=== PATIENT | female | born 1990 | race Caucasian/White ===

== ENCOUNTER 2022-01-10 09:01 | Outpatient (CLI) | payer OTHER, SELFPAY ==
--- NOTE | 2022-01-10 09:15 | CRLHL7_ITS ---
For Patients: As a result of the Century Cures Act, medical imaging exams and procedure reports are released immediately into your electronic medical record. You may view this report before your referring provider. If you have questions, please contact your health care provider. INDICATION: Evaluate anatomy. COMPARISON: 11/15/2021 TECHNIQUE: Real time messina scale imaging of the fetus was performed as well as color Doppler analysis of the umbilical vessels. FINDINGS: Sonographic imaging demonstrates a single living intrauterine gestation. Fetus demonstrates a regular cardiac rate of 161 beats per minute. Fetus has a breech position. The placenta lies anteriorly without evidence of placenta previa. The edge of the placenta is located 3 cm from the internal cervical os. Amniotic fluid volume appears normal. Single deepest vertical pocket: 5.7 cm. The cervix is closed and measures 4.8 cm in length. The composite ultrasound gestational age is calculated at 20 weeks 3 days with an estimated sonographic due date of 05/27/2022. The estimated weight is 354 grams which lies at the greater than 97th %. The following biometric measurements were obtained: Biparietal diameter: 4.8 cm/20 weeks 3 days 95th% Head circumference: 17.8 cm/20 weeks 2 days 91st% Abdominal circumference: 16.1 cm/21 weeks 1 day 96th% Femur length: 3.1 cm/19 weeks 4 days 65th% The HC/AC ratio measures: 1.10 range (1.07-1.25) On anatomic survey, there is a normal appearance of the cerebral ventricles, cavum septi pellucidi, cisterna magna and cerebellum. The nose, lips, and facial profile appear normal. The cervical, thoracic and lumbar spine are well visualized and appear normal. There is a normal four-chamber heart view and the left and right ventricular outflow tracts appear normal. The diaphragm and stomach appear normal. The kidneys and bladder also appear normal. There is a normal three-vessel cord and cord insertion site. The four extremities appear normal. IMPRESSION: Normal anatomic survey. Sonographic gestational age 20 weeks 3 days and sonographic due date 05/27/2022. Sonographic age 10 days ahead of the clinical age. Abdominal circumference 96th percentile. Estimated weight greater than 97th percentile. Dictated by Ferny London MD @ 01/10/2022 11:25:30 AM (Electronically Signed)
== END 2022-01-10 09:02 | disposition home or self-care (01) ==
LOC: US 09:01
PROVIDERS: Visit Provider Obstetrics & Gynecology
DX: Z34.91 Encounter for supervision of normal pregnancy, unspecified, first trimester (principal); Z3A.20 20 weeks gestation of pregnancy
CPT/HCPCS: 76805

== ENCOUNTER 2022-02-07 10:12 | Outpatient (CLI) | payer OTHER, SELFPAY ==
[2022-02-07 12:35] LABS: Alanine Aminotransferase* 13 U/L (4-35); Aspartate Amino Transferase* 17 U/L (12-35)
== END 2022-02-07 10:13 | disposition home or self-care (01) ==
PROVIDERS: Visit Provider Obstetrics & Gynecology
DX: O36.0910 Maternal care for other rhesus isoimmunization, first trimester, not applicable or unspecified (principal); Z87.59 Personal history of other complications of pregnancy, childbirth and the puerperium
CPT/HCPCS: 84450; 84460; 86850; 86870; 86880; 86886; 86900; 86901; 86976

== ENCOUNTER 2022-03-16 10:21 | Outpatient (CLI) | payer OTHER, SELFPAY ==
[2022-03-18 17:17] LABS: Rapid Plasma Reagin (RPR) Non Reactive (Non Reactive)
== END 2022-03-16 10:22 | disposition home or self-care (01) ==
PROVIDERS: Visit Provider Obstetrics & Gynecology
DX: O36.0930 Maternal care for other rhesus isoimmunization, third trimester, not applicable or unspecified (principal); Z3A.28 28 weeks gestation of pregnancy
CPT/HCPCS: 86592; 86870; 86880; 86886; 86900; 86901; 86976

== ENCOUNTER 2022-03-30 10:08 | Outpatient (CLI) | payer OTHER, SELFPAY ==
[2022-03-30] VITALS (30 sets, daily range): BP systolic 118–130; BP diastolic 76–84; PULSE 70–101; RESP 16–18; TEMP 36.7–36.9; O2SAT 96–99; BMI 28.9
--- NOTE | 2022-03-30 10:46 | ED.NURSE ---
OB nurse, Dianne, here in dept to place monitor for baby
--- NOTE | 2022-03-30 11:05 | ED_ITS ---
HPI - Head Injury General Chief complaint: Head Injury/Pain Stated complaint: 30 week fell hit head Time Seen by Provider: 03/30/22 10:21 History of Present Illness HPI Narrative: This 31-year-old female comes in with an injury to her head that occurred just prior to arrival. She is 30 weeks and was ambulating up the steps on her porch. She tripped on the step and fell forward hitting her face on floor and her forehead on the threshold of the door. She has a laceration just above the scalp line on her upper forehead. She did not have loss of consciousness. She does not report any other injury. She does not have any abdominal pain and is not certain whether she hit her abdomen. She does not report severe headache but does have some tenderness at the site of the injury. She has not had any vomiting. She does not show any neurologic deficit or altered level of consciousness. Related Data Home Medications Medication Instructions Recorded Confirmed docosahexaenoic acid 200 mg 200 mg PO 12/15/21 03/28/22 capsule ( DHA) escitalopram oxalate 10 mg tablet 10 mg PO DAILY 12/15/21 03/28/22 Allergies Allergy/AdvReac Type Severity Reaction Status Date / Time banana Allergy Mild Rash Verified 03/28/22 10:47 lentils Allergy Verified 03/28/22 10:47 peas Allergy Verified 03/28/22 10:47 pineapple Allergy Verified 03/28/22 10:47 chickpea Allergy Intermediate Hives Uncoded 03/28/22 10:47 seasonal Allergy Mild Uncoded 03/28/22 10:47 Review of Systems Status of ROS: Reports: 10 or more systems reviewed and unremarkable except as noted in History and below Narrative: Constitutional: No fevers, no weight gain or loss. Eyes: No discharge. No vision changes. HENT: No congestion, no sore throat, no ear pain. Scalp laceration. Cardiovascular: No chest pain, no palpitations. Respiratory: No shortness of breath, no wheezes, no cough. Gastrointestinal: No abdominal pain, no vomiting, no diarrhea. Genitourinary: No dysuria, no hematuria. Musculoskeletal: Normal range of motion. Skin: No rashes, no pruritis. Neurological: No dizziness, weakness, sensory change, speech change. Endo/Heme/Allergies: No bruising or bleeding. No polydipsia. Pysch: no suicidality, no anxiety, no insomnia. All other systems reviewed and are negative. 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 Bacterial vaginosis Breast pain Gestational hypertension History of gestational hypertension LGA (large for gestational age) fetus Lump of right breast Normal delivery depression , confirmed, not first Spontaneous vaginal delivery Supervision of normal first Vulvar irritation Yeast vaginitis Family History (Updated 12/09/21 @ 16:08 by Karli Goodwin) Father Diabetes Social History (Updated 12/09/21 @ 16:09 by Karli Goodwin) Narrative: Non-smoker Smoking Status: Never smoker Do you use any of these nicotine containing products: None How often do you have a drink containing alcohol: never AUDIT-C Alcohol total score: 0 Non-prescribed substance use: denies use Exam Narrative: Exam Narrative: Constitutional: Well-developed, well-nourished, no acute distress. HEENT: 2 cm linear laceration just above the scalp line in the mid forehead. Neck: Normal range of motion. Nontender. Supple. Heart: Regular. No murmurs. Normal rate. Intact distal pulses. Lungs: Clear to auscultation. No chest discomfort. No wheezes, rhonchi, or rales. Abdomen: Normal bowel sounds. Nontender. No rebound tenderness. Gravid. Genitalia: Deferred. Back: No midline tenderness. Normal range of motion. Extremities: Normal range of motion. No injury. Skin: Intact. No rash. Warm. No erythema or pallor. Neurologic: No altered sensation. No weakness. Alert and oriented. Psychiatric: No suicidality. No anxiety or depression. No insomnia. Nursing notes and vitals signs are reviewed. Const: Vital Signs, click to edit/add: Vital Signs - 24 hr 03/30/22 10:11 Temperature 98.1 F Pulse Rate [Right Pulse Oximeter] 87 Respiratory Rate 18 Blood Pressure [Ri ght Upper Arm] 130/84 Pulse Oximetry 99 Oxygen Delivery Me thod Room Air Course Vital Signs Vital signs: Initial Vital Signs Temperature 98.1 F 03/30/22 10:11 Temperature Source Temporal Artery Scan 03/30/22 10:11 Pulse Rate 87 03/30/22 10:11 Respiratory Rate 18 10/19/22 10:11 Blood Pressure 130/84 03/30/22 10:11 Blood Pressure Mean 99 03/30/22 10:11 Blood Pressure Position Sitting 03/30/22 10:11 Pulse Oximetry 99 03/30/22 10:11 Oxygen Delivery Method 03/30/22 10:11 Vital Signs Temperature 98.1 F 03/30/22 10:11 Pulse Rate 87 03/30/22 10:11 Respiratory Rate 18 03/30/22 10:11 Blood Pressure 130/84 03/30/22 10:11 Pulse Oximetry 99 03/30/22 10:11 Oxygen Delivery Method 03/30/22 10:11 Temperature 98.1 F 03/30/22 10:11 Pulse Rate 87 03/30/22 10:11 Respiratory Rate 18 03/30/22 10:11 Blood Pressure 130/84 03/30/22 10:11 Pulse Oximetry 99 03/30/22 10:11 Oxygen Delivery Method 03/30/22 10:11 MDM - Head Injury MDM Narrative Medical decision making narrative: This patient comes in with a scalp laceration as described above. The wound was cleansed and explored to its base. I discussed repair options and recommended Dermabond. This was applied with excellent results. Instructions were given regarding wound care. This patient is 30 weeks so an OB nurse came to evaluate the patient with tocometry. The patient is okay to be discharged from the emergency department and can go to the OB department for further monitoring according to their guidelines. Discharge Plan Discharge Clinical Impression: , Laceration of scalp Patient Disposition: Home, Self-Care Condition: Stable Additional Instructions: Okay to discharge from the emergency department. Proceed to OB department for ongoing monitoring according to protocol. Keep scalp laceration clean and dry. Follow up with MD otherwise as needed or return if worsening. Prescriptions: No Action DHA 200 mg capsule 200 mg PO escitalopram oxalate 10 mg tablet 10 mg PO DAILY Follow Up/Referrals: Provider,Not a Local [Primary Care Provider] - Stand Alone Forms: [employer] Info Instructions
--- NOTE | 2022-03-30 11:41 | P.OBLDTN_ITS ---
OB - Triage/Final Diagnosis Visit Information Date Seen: 03/30/22 Narrative: The patient is a 31 year old 4 para 2011 at 30 2/7 weeks gestation by LMP, who present presented to the emergency department after she tripped when the toe of her sandals became caught on the steps and fell forward going up her front steps, and hit her head and face on the threshold. The incident occurred at approximately 10:30 a.m. this morning. She did not lose consciousness. She was found to a scalp laceration which was reapproximated with surgical glue. She does not believe that she contacted her abdomen with the fall, but is uncertain. She denies any abdominal pain. She has no abrasions or bruising over the abdomen or over her hands or palms. Her fetus is still very active. She denies uterine contractions or abdominal pain. She denies leakage of fluid or vaginal bleeding. She currently has a headache and some pain and tightness in her posterior neck and shoulders. CARE: KULWANT 06/06/2022 by certain LMP. OB PROBLEM LIST: 1. Patient HAD anti-E antibody on type and screen for Suction D&C for an sab. * First visit: B positive, antibody screen negative! (No anti-E antibody!) * MFM consultation on 12/17/21: Recommendation: Assess T&S every trimester * 02/07/2022 at 23w0d: Anti-E (+) no titer reported. * If domonique screen is + then assess titer of domonique q 4wks * If domonique titer is >/=8 then referral to [facility] for serial assessments for anemia w/ MCA dopplers * 03/16/22: 28 wks: Anti-E titer: < 1 2. 10/25/21: h/o gestational HTN w/ 1st ; recommended ASA at 12 weeks; baseline labs --elevated AST and ALT: 77*, 164* (10/27/21: repeat AST: 31, ALT: 97*), BUN 6, Creat 0.5, negative Hepatitis panel, 24 hour urine protein 273mg. ---Repeat AST and ALT at 24 weeks: Ordered 02/07/2022: AST: 17, ALT: 13. ---If she develops RUQ pain, repeat RUQ u/s (NPO/fasting) 3. US on 10/25: MALLORY 3.0 x 0.6 x 2.2 cm; umbilical cord cyst 0.3 x 0.2 x 0.3 cm --f/u US in 2-3 weeks: 11/15/2021: Both have resolved. Patient never had bleeding. Declined genetic testing. 4. EFW >97% at 20 weeks. Repeat US for EFW in 3rd trimester. PAST OBSTETRICAL HISTORY: Total number of pregnancies: 4. Full term: 2. Premature: 0. Abortions: 0. Miscarriages: 1. Ectopics: 0. Number of living children: 2 Previous Deliveries: 1. Date: 03/11/2016. Weeks of gestation: 38 weeks. Length of labor: ?long?. weight: 8 lb 8 oz. Sex: Male. Type of delivery: Vaginal. Type of anesthesia: Epidural. Place of delivery: [place]. Pre-term labor: No. Complications: Gestational hypertension. 2. Date: 03/10/2018. Weeks of gestation: 39 weeks 3 days. weight: 8 lb 6 oz. Sex: Female. Type of delivery: Vaginal. Type of anesthesia: Epidural. Place of delivery: [place]. Pre-term labor: No. Complications: None. GYNECOLOGIC HISTORY: Contraception being uses during time of conception: None. Last menstrual period normal: 08/30/2021. Date reliability: Certain. Usual cycle interval 28 days. Treatment for infertility: No. Last pap: September 2020. History of abnormal pap: No. History of STI or PID: No. History of MRSA: No. PAST MEDICAL HISTORY: Gestational hypertension Asthma Anxiety Current Medications: Lexapro mg daily IMMUNIZATIONS: Flu vaccination: Completed COVID vaccination: Completed, but not yet boosted. History of chicken pox: Yes. SURGICAL HISTORY: Vaginal repair History of blood transfusion: No. SOCIAL HISTORY: Occupation: Training. Marital status: . Partner: Eddie. Lives with: and 2 kids. Pets: 2 dogs. Taoist/cultural needs: No. Chemical or radiation exposure: No. Pre- tobacco use: No. Pre- alcohol use: No. Current tobacco use: No. Current alcohol use: No. Recreational drug use: No. Dietary restrictions: No. Blood transfusion acceptable in an emergency: Yes. Planning to breastfeed: Yes. FAMILY AND GENETIC HISTORY: Denies recurrent losses Denies history of defects Reason for evaluation: other (Trauma) Evaluation Vital signs: Vital Signs - 24 hr 03/30/22 10:11 Temperature 98.1 F Pulse Rate [Right Pulse Oximeter] 87 Respiratory Rate 18 Blood Pressure [Right Upper Arm] 130/84 Pulse Oximetry 99 Oxygen Delivery Method Room Air Comments: General appearance: Alert, cooperative white female in no acute distress. Mood and affect: Normal. HEENT: PERRLA. Scalp laceration, mid forehead just above the hairline, reapproximated with surgical glue. Abdomen soft, gravid, nontender. No ecchymoses or abrasions. Extremities: No evidence of gross injury. No abrasions or ecchymoses seen upper or lower extremities. Fetus (Single) Heart Rate Baseline: 130 Building Wrecker Variability: Moderate (11-25) Monitor Accelerations: Present Monitor Decelerations: None Final Diagnosis (1) Traumatic injury during : Status: Acute Problem details: Head injury, superficial, treated by emergency department physician. No evidence of direct abdominal trauma by patient's history or physical examination. Discussed the rationale for extended monitoring, just in case there was any shear force to the abdomen that could affect the placenta, causing placental abruption. If this were to be the case, signs would usually be evident within the first few hours. I would recommend external monitoring until 1:30 this afternoon. The patient will be monitored in the [facility]. At this time, the monitoring has been very reassuring. We will allow her to eat lunch, as she is hungry. Acetaminophen, 1000 mg, will be administered orally for her head pain. Warm compress to be applied to the shoulders and posterior neck. Blood type is B positive, RhoGAM administration is not indicated. If testing continues to be reassuring over the next 2 hours, the patient will be discharged to home with instructions to self monitor movement and follow up in the clinic as scheduled.
[2022-03-30] MEDS: ACETAMINOPHEN 500 MG TABLET 1000 MG PO (11:48)
--- NOTE | 2022-03-30 14:23 | PC.OBNST ---
NST Note NST Note Start: 03/30/22 14:19 Freq: ONCE Status: Active Protocol: Document 03/30/22 14:02 LUNA (Rec: 03/30/22 14: [id number] [id number]) NST Note 4 Para (# of births) 2 EDC 06/06/22 Gestational Age In Weeks & Days 30 Weeks & 2 Days Patient Presented with Complaint(s) of Other If Observation after an injury, describe Fall this morning Reactive Yes Appropriate for Gestational Age Yes ALEX Lopes RN Date 03/30/22 Reactive Yes Appropriate for Gestational Age Yes ALEX Catherine RN Date 03/30/22 OB NST charge Yes Complete NST Note via Write Note Yes The provider's electronic signature indicates the NST is reactive/appropriate for gestational age. *Note to provider: If an addendum is required, open the patient's chart and click on the note under the Nurse/Allied Health tab.
== END 2022-03-30 14:10 | disposition home or self-care (01) ==
LOC: ED 11:11 → OB OUT 11:26 → OB 11:28
PROVIDERS: Emergency Provider Emergency Medicine Emergency Medical Services; Visit Provider Obstetrics & Gynecology
DX: O9A.213 Injury, poisoning and certain other consequences of external causes complicating pregnancy, third trimester (principal); Z3A.30 30 weeks gestation of pregnancy
CPT/HCPCS: 59025; 99213; 99284; A9270

== ENCOUNTER 2022-04-11 10:54 | Outpatient (CLI) | payer OTHER, SELFPAY ==
--- NOTE | 2022-04-11 11:00 | CRLHL7_ITS ---
For Patients: As a result of the Century Cures Act, medical imaging exams and procedure reports are released immediately into your electronic medical record. You may view this report before your referring provider. If you have questions, please contact your health care provider. INDICATION: Third trimester scan, evaluate growth. MEASURING LARGE FOR DATES COMPARISON: 01/10/2022 TECHNIQUE: Real time messina scale imaging of the fetus was performed. FINDINGS: Sonographic imaging demonstrates a single living intrauterine gestation. Fetus demonstrates a regular cardiac rate of 131 beats per minute. Fetus has a vertex position. The placenta lies anteriorly. Amniotic fluid volume appears normal and there is a single deepest vertical pocket: 5.2 cm. The estimated weight is 2106gm which lies at the 73rd %. On the prior OB ultrasound exam dated 01/10/2022 the estimated weight was at the greater than 97th%. BPD greater than 97th. HC 95th percentile. AC 76th percentile. FL 28th percentile. The HC/AC ratio measures 1.10 range (0.95-1.11). IMPRESSION: Sonographic gestational age 33 weeks 6 days and sonographic due date 05/24/2022. Sonographic age 13 days ahead of the clinical age. Estimated weight 73rd percentile. Abdominal circumference 76th percentile. Dictated by Ferny London MD @ 04/11/2022 11:50:52 AM (Electronically Signed)
== END 2022-04-11 10:55 | disposition home or self-care (01) ==
LOC: US 10:54
PROVIDERS: Visit Provider Obstetrics & Gynecology
DX: Z34.93 Encounter for supervision of normal pregnancy, unspecified, third trimester (principal); Z3A.32 32 weeks gestation of pregnancy
CPT/HCPCS: 76816; 86870; 86886; 86900; 86901; 86976

== ENCOUNTER 2022-05-11 10:32 | Outpatient (CLI) | payer OTHER, SELFPAY ==
[2022-05-12 12:49] LABS: Strep B DNA Probe NEGATIVE (Negative)
[2022-05-15 14:56] LABS: Strep B Pen/Amox Allergy No
== END 2022-05-11 10:33 | disposition home or self-care (01) ==
LOC: FRMREF 10:33
PROVIDERS: Visit Provider Obstetrics & Gynecology
DX: O36.0930 Maternal care for other rhesus isoimmunization, third trimester, not applicable or unspecified (principal); Z3A.36 36 weeks gestation of pregnancy
CPT/HCPCS: 86870; 86880; 86886; 86900; 86901; 86976; 87081; 87653

== ENCOUNTER 2022-05-30 07:21 | Inpatient (IN) | payer OTHER, SELFPAY ==
[2022-05-30] VITALS (30 sets, daily range): BP systolic 108–147; BP diastolic 55–95; PULSE 78–134; RESP 14–16; TEMP 36.6–36.8; O2SAT 97–100; BMI 29.2
[2022-05-30 09:08] LABS: SARS PCR* Negative SARS-CoV-2 (Negative)
[2022-05-30] MEDS: miSOPROStoL 25 MCG/0.25 TABLET VAGINAL ×2 (09:31→12:42)
--- NOTE | 2022-05-30 10:59 | P.OBHP_ITS ---
OB - H&P: HPI Labor/Induction History of Present Illness Time Seen by Provider: 10:00 Date Seen: 05/30/22 Chief Complaint: Induction of Labor Chief complaint: Maternity Narrative: Gerda Killian is a 31 year old female at 39w0d here for an elective induction. Patient endorses Fredy Dooley contractions. Denies any regular contractions. Denies loss of fluid, vaginal bleeding, or abnormal vaginal discharge. Patient has anti E antibody. 2 units of type and cross blood on hold and ready for patient as needed. Patient denies fever, chills, chest pain, SOB, n/v, headache, vision changes, RUQ pain, or dizziness. History of Present Dating criteria: based on LMP care: good care Medical complications: none Review of Systems Status of ROS: Reports: 10 or more systems reviewed and unremarkable except as noted in History and below Meds Home Medications and Allergies Home Medications Medication Instructions Recorded Confirmed Type docosahexaenoic acid 200 mg 200 mg PO 12/15/21 05/25/22 History capsule ( DHA) escitalopram oxalate 10 mg tablet 10 mg PO DAILY 12/15/21 05/25/22 History calcium carbonate 200 mg calcium 200 mg PO BID 05/16/22 05/25/22 History (500 mg) chewable tablet (Tums) Allergies Allergy/AdvReac Type Severity Reaction Status Date / Time banana Allergy Mild Rash Verified 05/25/22 09:39 lentils Allergy Verified 05/25/22 09:39 peas Allergy Verified 05/25/22 09:39 pineapple Allergy Verified 05/25/22 09:39 chickpea Allergy Intermediate Hives Uncoded 05/25/22 09:39 seasonal Allergy Mild Uncoded 05/25/22 09:39 OB - H&P: Exam Physical Exam: Vital signs: Temp Pulse Resp BP Pulse Ox 97.9 F 78 16 124/76 97 05/30/22 07:24 05/30/22 07:24 05/30/22 07:24 05/30/22 07:24 05/30/22 07:24 Narrative: Physical exam: General: No acute distress Psych: Alert and oriented x3, full affect HEENT: Normocephalic, atraumatic Lungs: Unlabored breathing Lower extremities: No edema or erythema Pelvic exam: Mons normal, clitoris normal, urethral meatus normal. Labia minora and majora normal in appearance bilaterally. Perineum and anus normal appearance. SVE:0.5/50/-4. 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 Patient is approx 2 cm at external os but internet site designer os is almost closed and cervix is very posterior. - Will do cervical ripening with cytotec
--- NOTE | 2022-05-30 17:37 | PM.OBPNL ---
Subjective Time Seen by Provider: 17:00 Date Seen: 05/30/22 Narrative: Cook cath placed at 1700 after 2 doses of miso. Discontinued misoprotocol due to tachysystole. Objective Vital Signs: Last Vital Signs Temp 98.3 F 05/30/22 17:03 Pulse 93 05/30/22 17:03 Resp 16 05/30/22 17:03 BP 131/81 05/30/22 17:03 Pulse Ox 97 05/30/22 17:04 Pelvic Exam Dilation (cm): 1.5 Effacement (%): 50 Station: -2 Contractions Monitor mode: External Contraction pattern: Regular Assessment Status: Category l Heart Rate Baseline: 120 Political Cartoonist Variability: Moderate (6-25) Monitor Accelerations: Present Monitor Decelerations: None
[2022-05-30] MEDS: ONDANSETRON 2 MG/ML inj 4 MG IV ×2 (19:37→23:52)
[2022-05-30] MEDS: LACTATED RINGERS 1000 ML 1,000 ML 1200 ML IV ×2 (21:21→22:16)
[2022-05-30] MEDS: OXYTOCIN 30 unit/500 ML in NS 30 UNIT/500 ML BAG IVPB (21:23)
[2022-05-30] MEDS: LIDOCAINE 2% (PF) 5 ML VIAL EPIDURAL (22:23)
[2022-05-30] MEDS: ROPIVACAINE 0.2% 100 ml 100 ML 10 MG EPIDURAL (22:29)
--- NOTE | 2022-05-30 22:31 | P.ANBPRC_ITS ---
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 Bacterial vaginosis Breast pain Gestational hypertension History of gestational hypertension LGA (large for gestational age) fetus Lump of right breast Normal delivery depression , confirmed, not first Spontaneous vaginal delivery Supervision of normal first Vulvar irritation Yeast vaginitis Family History (Updated 12/09/21 @ 16:08 by Karli Goodwin) Father Diabetes Social History (Updated 12/09/21 @ 16:09 by Karli Goodwin) Narrative: Non-smoker Smoking Status: Never smoker Do you use any of these nicotine containing products: None How often do you have a drink containing alcohol: never AUDIT-C Alcohol total score: 0 Non-prescribed substance use: denies use Meds Home Medications and Allergies Home Medications Medication Instructions Recorded Confirmed Type docosahexaenoic acid 200 mg 200 mg PO 12/15/21 05/25/22 History capsule ( DHA) escitalopram oxalate 10 mg tablet 10 mg PO DAILY 12/15/21 05/25/22 History calcium carbonate 200 mg calcium 200 mg PO BID 05/16/22 05/25/22 History (500 mg) chewable tablet (Tums) Allergies Allergy/AdvReac Type Severity Reaction Status Date / Time banana Allergy Mild Rash Verified 05/25/22 09:39 lentils Allergy Verified 05/25/22 09:39 peas Allergy Verified 05/25/22 09:39 pineapple Allergy Verified 05/25/22 09:39 chickpea Allergy Intermediate Hives Uncoded 05/25/22 09:39 seasonal Allergy Mild Uncoded 05/25/22 09:39 Results Labs Labs: Laboratory Results - last 24 hr 05/30/22 08:15 SARS-CoV-2 (PCR) Negative SARS-CoV-2 Vital Signs Vital Signs: Last Vital Signs Temp 98.3 F 05/30/22 19:44 Pulse 85 05/30/22 22:30 Resp 14 05/30/22 19:44 BP 122/76 05/30/22 22:30 Pulse Ox 100 05/30/22 22:23 Weight: 82.146 kg Height: 167.64 cm Anesthesia Procedures Epidural Insertion Patient Location: OB Start Time: 22:10 Stop Time: 22:40 Start Date: 05/30/22 Stop Date: 05/30/22 Reason for Block: primary anesthetic Patient Position: sitting Performed By: Guillaume Burrell Preanesthetic Checklist: IV checked, risks and benefits discussed, surgical consent, monitors and equipment checked, pre-op evaluation, timeout performed and anesthesia consent Prep: chlorhexidine gluconate Monitoring: blood pressure monitoring, lead vulcanizing operator, continuous pulse oximetry and heart rate Approach: midline Vertebral Space: lumbar (1-5) Needle Type: Tuohy needle Injection Technique: continuous catheter (catheter) Needle gauge: 17 Needle Length (cm): 10 cm Needle Insertion Depth (cm): 5 Catheter Gauge: 19 Catheter Type: multi-orifice Catheter at skin depth (cm): 10 Test Dose Result: negative and lidocaine 1.5% with epinephrine 1 to 200,000
[2022-05-30] MEDS: PHENYLEPHRINE 100 MCG/ML SYRINGE IVP (22:53)
--- NOTE | 2022-05-30 23:11 | PM.OBPNL ---
Subjective Time Seen by Provider: 11:00 Date Seen: 05/30/22 Objective Vital Signs: Last Vital Signs Temp 98.3 F 05/30/22 19:44 Pulse 106 H 05/30/22 23:11 Resp 14 05/30/22 19:44 BP 113/59 L 05/30/22 23:11 Pulse Ox 100 05/30/22 22:23 Pelvic Exam Dilation (cm): 4 Effacement (%): 60 Station: -2 Comments: Patient has epidural. AROM at 2300 Contractions Monitor mode: External Contraction pattern: Regular Assessment Assessment: induction ongoing Status: Category l Heart Rate Baseline: 120 Monitor Accelerations: Present Monitor Decelerations: None
[2022-05-30] MEDS: LACTATED RINGERS 1000 ML 1,000 ML 125 ML IV (23:13)
[2022-05-31] VITALS (37 sets, daily range): BP systolic 94–136; BP diastolic 53–82; PULSE 74–180; RESP 16–18; TEMP 36.2–37.1; O2SAT 81–97
[2022-05-31] MEDS: PHENYLEPHRINE 100 MCG/ML SYRINGE IVP ×4 (00:11→00:53)
[2022-05-31] MEDS: ePHEDrine sulfate 5 MG/ML inj 10 MG IVP (01:01)
[2022-05-31] MEDS: LACTATED RINGERS 1000 ML 1,000 ML 1200 ML IV ×2 (01:33→02:47)
--- NOTE | 2022-05-31 05:15 | PM.OBPRCVD ---
Procedure Delivery date: 05/31/22 Procedure Done: Global Procedure Details: Gerda is a 31 year-old now admitted on 05/30 at 39 Weeks, 0 Days gestation for elective induction of labor. AROM occurred at time on 2299 with clear fluid. Labor Analgesia: Epidural Pitocin: Yes, started at 2122 Labor onset: 05/30 at 2300. Complete: 05/31 at 0314. Pushin/20 at 0320. heart tones during second stage were: cat II - with intemittent variable. At 0328 a viable male delivered in vertex OA presentation over intact perineum via spontaneous vaginal delivery. The infant was placed on maternal abdomen. Cord was clamped and cut after a 30 second delay. Nose and mouth were bulb suctioned. Infant weight pending. 8 at 1 minute and 9 at 5 minutes. Shoulder dystocia: No. Nuchal cord: No Placenta delivered spontaneously and complete at 0332 with a 3 vessel cord. Laceration(s): None. Blood loss: 100 mL. Blood loss measurement type: Quantitative Sponge and needles counts are correct. Specimen: none Mother and were stable after delivery. 's name: Samuel The patient is planning on .
[2022-05-31] MEDS: IBUPROFEN 600 MG TABLET PO ×3 (06:40→18:31)
[2022-05-31] MEDS: ESCITALOPRAM 10 MG TABLET PO (09:00)
[2022-06-01] MEDS: IBUPROFEN 600 MG TABLET PO ×2 (00:32→09:04)
[2022-06-01 00:35] VITALS: BP 133/87; PULSE 76; RESP 18; TEMP 36.4; O2SAT 95
[2022-06-01 04:03] VITALS: BP 110/74; PULSE 68; RESP 18; O2SAT 97
--- NOTE | 2022-06-01 07:37 | PM.OBDSVD1 ---
DS: Providers Provider Time Seen by Provider: 07:38 Date Seen: 06/01/22 Date of admission: 05/30/22 07:21 Primary care physician: Not a Local Provider Admitting Clinician: Bita Coy MD Attending Physician on discharge: Bita Coy MD DS: Diagnosis Discharge Diagnosis (1) Lactating mother: Status: Acute (2) NVD (normal vaginal delivery): Status: Acute Exam Narrative: Exam Narrative: Objective: VSS, afebrile GENERAL APPEARANCE: ?normal affect, alert, no distress MOOD: ?appropriate HEENT: normocephalic, neck supple, full ROM CHEST: ?Symmetrical chest wall movement. ?Normal respiratory effort. ?Clear to auscultation HEART: ?regular rate and rhythm ABDOMEN: ?soft, non-tender. Uterine fundus is firm, @ Umbilicus, Midline and is appropriate for the stage of recovery. ?Bowel sounds present. PERINEUM: ?mild edema of the perineum EXTREMITIES: ?normal and trace pedal edema Const: Vital Signs, click to edit/add: Vital Signs - 24 hr 05/31/22 12:17 05/31/22 08:30 05/31/22 16:45 Temperature 98.2 F 97.9 F Pulse Rate [Left P ulse Oximeter] 74 89 Respiratory Rate 16 16 16 Blood Pressure [Le ft Arm] 124/82 116/77 Pulse Oximetry 96 96 Oxygen Delivery Me thod Room Air Room Air Room Air 05/31/22 20:48 06/01/22 00:35 06/01/22 04:03 Temperature 97.2 F L 97.5 F L Pulse Rate [Left P ulse Oximeter] 75 76 68 Respiratory Rate 18 18 18 Blood Pressure [Le ft Arm] 115/72 133/87 110/74 Pulse Oximetry 97 95 97 Oxygen Delivery Me thod Room Air Room Air OB - DS: Summary Hospital Course Hospital Course: Gerda is a 31 y.o. who was admitted to [facility] for elective IOL. ?She had an uncomplicated NVD The patient feels well. ?The pain is well controlled with current medications. ?She has no new complaints. ?She is breast feeding and reports things are going well.? the patient has done well.? Vitals have been stable.? She has remained afebrile.? Has a good appetite, is tolerating a general diet. ?She is voiding without difficulty.? She is passing gas and has not had a bowel movement.? She is ambulating and denies any dizziness.? Has Small amount of rubra lochia. ?She is planning partner vasectomy for prevention. Problems: NA plan: Discharge home with baby. Follow up in 2 weeks and 6 weeks. , may follow up with if needed[ Peripartum Data delivery method: Vaginal Laceration description: None complications: none Jemison Infant Gender: Male Status at Discharge Functional status at discharge: independent ambulation Overall status at discharge: patient is progressing back to baseline Time Spent with Patient Time attestation: Total time spent providing and/or coordinating discharge services: Time spent: Less than 30 minutes Discharge Plan Discharge Disposition: Home, Self-Care Date of Admission: 05/30/22 07:21 Attending Provider on Discharge: Riri Spain Primary Care Provider: Provider,Not a Local Condition: Stable Anticipated Discharge Date/Time: 06/01/22 10:41 Discharge Medications: New docusate sodium 100 mg Capsule 100 mg PO BID PRNQty: 100 0RF Rx Instructions: Take 1 cap 1-2 times a day as needed for constipation ibuprofen 600 mg Tablet 600 mg PO Q6H PRNQty: 60 0RF Continued DHA 200 mg capsule 200 mg PO escitalopram oxalate 10 mg tablet 10 mg PO DAILY calcium carbonate [Tums] 200 mg calcium (500 mg) tablet,chewable 200 mg PO BID Discharge Orders: Discharge Order (Routine); Ordered 06/01/22 Ordered By: Riri Spain Additional Instructions: Follow up in 2 weeks and 6 weeks Activity Level: Activity as Tolerated Discharge Diet: Regular Follow Up Appointments: Provider,Not a Local [Primary Care Provider] - Forms: [employer] Info Instructions
[2022-06-01 07:54] LABS: Hemoglobin* 9.7 gm/dL (12.0-16.0)
[2022-06-01 09:00] VITALS: BP 116/78; PULSE 84; RESP 16; TEMP 36.7; O2SAT 98
== END 2022-06-01 11:00 | disposition home or self-care (01) | DRG 807 ==
PROVIDERS: Obstetrics & Gynecology; Admitting Provider Obstetrics & Gynecology; Visit Provider Obstetrics & Gynecology
DX: O36.0930 Maternal care for other rhesus isoimmunization, third trimester, not applicable or unspecified (principal); Z37.0 Single live birth; O99.344 Other mental disorders complicating childbirth; F41.1 Generalized anxiety disorder; J45.990 Exercise induced bronchospasm; Z3A.39 39 weeks gestation of pregnancy
CPT/HCPCS: 01967; 36415; 59200; 85018; 86850; 86870; 86880; 86900; 86901; 86922; 87635; A9270; J2370; J2405; J2795; J7120

== ENCOUNTER 2022-08-07 08:13 | Emergency (ER) | payer OTHER, SELFPAY ==
[2022-08-07 08:22] VITALS: BP 119/92; PULSE 114; RESP 18; TEMP 37.1; O2SAT 96; BMI 26.6
--- NOTE | 2022-08-07 08:40 | CRLHL7_ITS ---
For Patients: As a result of the 21st Century Cures Act, medical imaging exams and procedure reports are released immediately into your electronic medical record. You may view this report before your referring provider. If you have questions, please contact your health care provider. INDICATION: ?peritonsillar abscess. Left sided neck swelling TECHNIQUE: CT of the neck with 81 ml iodinated contrast agent. Coronal and sagittal reconstructions are included. COMPARISON: None FINDINGS: Incidental asymmetric increased but incomplete calcification/ossification along the right stylohyoid ligament that could result in [place] syndrome if symptomatic. There is asymmetric enlargement and enhancement of the left palatine tonsil with associated fat stranding in the left parapharyngeal fat and left submandibular space consistent with acute tonsillitis. There is a oval 10 x 5 mm focus of hypoenhancement in the left palatine tonsil but could represent early abscess versus trapped secretions within a crypt, unlikely to be drainable at this time. There is associated diffuse edema of the left lateral oropharynx and left hypopharynx with thickening and edema of the left area epiglottic fold consistent with pharyngitis. There is complete effacement of the left piriform recess. No significant airway narrowing. Enlarged internal jugular lymph nodes bilaterally consistent with reactive lymphadenopathy. The oral cavity, nasopharyngeal, oropharyngeal and hypopharyngeal mucosal spaces are normal. No periapical dental disease. The glottic and infraglottic larynx are normal. The parotid glands, submandibular and sublingual glands are normal in appearance. The thyroid gland is normal in appearance. The vascular structures opacify normally with contrast material. Shallow disc osteophyte complex at C6-7 without significant spinal canal stenosis or significant neural foramina narrowing. No suspicious lytic or blastic osseous lesions. Visualized paranasal sinuses and mastoid air cells are clear. Visualized orbital and intracranial contents are normal. Supraclavicular regions, mediastinum and soft tissues of the imaged chest wall are normal. Visualized portions of the upper lungs are clear. IMPRESSION: 1. Left-sided acute palatine tonsillitis. Associated fat stranding in the left parapharyngeal fat and left submandibular space scratched. Oval 1 cm focus of hypoenhancement in the left palatine tonsil but could represent early abscess versus trapped secretions within a crypt, unlikely to be drainable at this time. 2. Diffuse edema of the left lateral oropharynx and left hypopharynx with thickening and edema of the left aryepiglottic fold consistent with acute pharyngitis. There is complete effacement of the left piriform recess. 3. No significant airway narrowing. 4. Enlarged internal jugular lymph nodes bilaterally consistent with reactive lymphadenopathy. 5. Incidental asymmetric increased calcification/ossification along the right stylohyoid ligament that could result in Mcgrath syndrome if symptomatic. Please note that all CT scans at this facility use dose modulation, iterative reconstruction, and/or weight-based dosing when appropriate to reduce radiation dose to as low as reasonably achievable. Dictated by Ferny Disla MD @ 08/07/2022 9:29:26 AM (Electronically Signed)
--- NOTE | 2022-08-07 08:41 | ED.GENADULT ---
HPI - General Adult General Chief complaint: Sore Throat Stated complaint: lt swollen lymph more swollen after amox Time Seen by Provider: 08/07/22 08:30 History of Present Illness HPI narrative: This 31-year-old female comes in with worsening sore throat. She was seen in urgent care yesterday and diagnosed with an ear infection. She was started on amoxicillin and has taken 2 doses. She states that she is feeling distinctly worse since then. She has swelling in her anterior neck left greater than right. She does have some muffled voice and trismus. She does not report any fevers. Related Data Home Medications Medication Instructions Recorded Confirmed docosahexaenoic acid 200 mg 200 mg PO 12/15/21 05/25/22 capsule ( DHA) escitalopram oxalate 10 mg tablet 10 mg PO DAILY 12/15/21 08/07/22 calcium carbonate 200 mg calcium 200 mg PO BID 05/16/22 05/25/22 (500 mg) chewable tablet (Tums) Previous Rx's Medication Instructions Recorded docusate sodium 100 mg capsule 100 mg PO BID PRN #100 caps 06/01/22 ibuprofen 600 mg tablet 600 mg PO Q6H PRN #60 tabs 06/01/22 amoxicillin 875 mg-potassium 1 tab PO BID #10 tabs 08/07/22 clavulanate 125 mg tablet hydrocodone 5 mg-acetaminophen 325 1 tab PO Q4-6H PRN pain #15 tabs 08/07/22 mg tablet Allergies Allergy/AdvReac Type Severity Reaction Status Date / Time banana Allergy Mild Rash Verified 08/07/22 09:21 lentils Allergy Verified 08/07/22 09:21 peas Allergy Verified 08/07/22 09:21 pineapple Allergy Verified 08/07/22 09:21 chickpea Allergy Intermediate Hives Uncoded 08/07/22 09:21 seasonal Allergy Mild Uncoded 08/07/22 09:21 Review of Systems Status of ROS: Reports: 10 or more systems reviewed and unremarkable except as noted in History and below Narrative: Constitutional: No fevers, no weight gain or loss. Eyes: No discharge. No vision changes. HENT: No congestion. Sore throat and cervical anterior lymphadenopathy. Left ear pain. Cardiovascular: No chest pain, no palpitations. Respiratory: No shortness of breath, no wheezes, no cough. Gastrointestinal: No abdominal pain, no vomiting, no diarrhea. Genitourinary: No dysuria, no hematuria. Musculoskeletal: Normal range of motion. Skin: No rashes, no pruritis. Neurological: No dizziness, weakness, sensory change, speech change. Endo/Heme/Allergies: No bruising or bleeding. No polydipsia. Pysch: no suicidality, no anxiety, no insomnia. All other systems reviewed and are negative. 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 Bacterial vaginosis Breast pain Gestational hypertension History of gestational hypertension LGA (large for gestational age) fetus Lump of right breast Normal delivery depression , confirmed, not first Spontaneous vaginal delivery Supervision of normal first Vulvar irritation Yeast vaginitis Family History (Updated 12/09/21 @ 16:08 by Karli Goodwin) Father Diabetes Social History (Updated 12/09/21 @ 16:09 by Karli Goodwin) Narrative: Non-smoker Smoking Status: Never smoker Do you use any of these nicotine containing products: None How often do you have a drink containing alcohol: never AUDIT-C Alcohol total score: 0 Non-prescribed substance use: denies use Exam Narrative: Exam Narrative: Constitutional: Well-developed, well-nourished, no acute distress. HEENT: Normocephalic, atraumatic. Cervical anterior lymphadenopathy, left greater than right. Mild trismus. Pain with swallowing. Airway is intact. Left tonsillar hypertrophy with exudate. Neck: Normal range of motion. Nontender. Supple. Heart: Regular. No murmurs. Normal rate. Intact distal pulses. Lungs: Clear to auscultation. No chest discomfort. No wheezes, rhonchi, or rales. Abdomen: Normal bowel sounds. Nontender. No rebound tenderness. Genitalia: Deferred. Back: No midline tenderness. Normal range of motion. Extremities: Normal range of motion. No injury. Skin: Intact. No rash. Warm. No erythema or pallor. Neurologic: No altered sensation. No weakness. Alert and oriented. Psychiatric: No suicidality. No anxiety or depression. No insomnia. Nursing notes and vitals signs are reviewed. Const: Vital Signs, click to edit/add: Vital Signs - 24 hr 08/07/22 08:22 Temperature 98.8 F Pulse Rate [Left P ulse Oximeter] 114 H Respiratory Rate 18 Blood Pressure [Le ft Upper Arm] 119/92 H Pulse Oximetry 96 Oxygen Delivery Me thod Room Air Course Vital Signs Vital signs: Initial Vital Signs Temperature 98.8 F 08/07/22 08:22 Temperature Source Temporal Artery Scan 08/07/22 08:22 Pulse Rate 114 H 08/07/22 08:22 Pulse Rhythm 08/07/22 08:22 Pulse Strength 3+ Normal 08/07/22 08:22 Respiratory Rate 18 08/07/22 08:22 Blood Pressure 119/92 H 08/07/22 08:22 Blood Pressure Mean 101 08/07/22 08:22 Blood Pressure Position Sitting 08/07/22 08:22 Pulse Oximetry 96 08/07/22 08:22 Oxygen Delivery Method 08/07/22 08:22 Vital Signs Temperature 98.8 F 08/07/22 08:22 Pulse Rate 114 H 08/07/22 08:22 Respiratory Rate 18 08/07/22 08:22 Blood Pressure 119/92 H 08/07/22 08:22 Pulse Oximetry 96 08/07/22 08:22 Oxygen Delivery Method 08/07/22 08:22 Temperature 98.8 F 08/07/22 08:22 Pulse Rate 114 H 08/07/22 08:22 Respiratory Rate 18 08/07/22 08:22 Blood Pressure 119/92 H 08/07/22 08:22 Pulse Oximetry 96 08/07/22 08:22 Oxygen Delivery Method 08/07/22 08:22 Medical Decision Making MDM Narrative Medical decision making narrative: This patient comes in with worsening sore throat and left-sided swelling with some trismus and muffled voice. These symptoms are suspicious for a peritonsillar abscess. An IV was established and labs were acquired. CT imaging of the soft tissue of the neck does show a small peritonsillar abscess on the left side that is less than 1 cm in size and not likely drainable. She did receive an IV dose of Dilaudid 0.5 mg. She has taken 2 doses of amoxicillin 875 mg. She received a g of Rocephin intravenously here and a prescription for Augmentin and [place] is provided. At the time of discharge the patient appears safe for outpatient management. The treatment plan is reviewed along with written and verbal return precautions. Reasons to return and the importance of close followup were also reviewed. Lab Data Labs: Lab Results 08/07/22 08/07/22 Range/Units 08:52 08:52 WBC 8.76 (4.50-11.00) K/uL RBC 4.64 (4.00-5.20) m/uL Hgb 11.6 L (12.0-16.0) gm/dL Hct 34.9 (33.0-51.0) % MCV 75 L (80-100) fL MCH 25 L (26-34) pg MCHC 33 (32-36) gm/dL RDW Coeff of Calin 13.5 (11.5-15.5) % Plt Count 294 (140-440) K/uL Neut % (Auto) 75.8 H (42.0-72.0) % Lymph % (Auto) 16.7 L (20-44) % [place] % (Auto) 5.7 (0.0-11.0) % Eos % (Auto) 1.3 (0.0-7.0) % Baso % (Auto) 0.2 (0.0-3.0) % Neut # (Auto) 6.60 (1.7-7.0) K/uL Lymph # (Auto) 1.50 (0.90-2.90) K/uL [place] # (Auto) 0.50 (0.00-0.90) K/UL Eos # (Auto) 0.11 (0.00-0.50) K/uL Baso # (Auto) 0.02 (0.00-0.30) K/uL Sodium 138 (135-149) mmol/L Potassium 3.9 (3.6-5.1) mmol/L Chloride 103 (96-114) mmol/L Carbon Dioxide 27 (20-32) mmol/L BUN 6 (5-24) mg/dL Creatinine 0.6 (0.5-1.5) mg/dL Estimated Creat Clear 124.85 Estimated GFR 121 ml/min Glucose 82 (60-115) mg/dL Calcium 8.5 (8.4-10.6) mg/dL Imaging Data CT Soft Tissue Neck: Radiologist's impression: 1. Left-sided acute palatine tonsillitis. Associated fat stranding in the left parapharyngeal fat and left submandibular space scratched. Oval 1 cm focus of hypoenhancement in the left palatine tonsil but could represent early abscess versus trapped secretions within a crypt, unlikely to be drainable at this time. 2. Diffuse edema of the left lateral oropharynx and left hypopharynx with thickening and edema of the left aryepiglottic fold consistent with acute pharyngitis. There is complete effacement of the left piriform recess. 3. No significant airway narrowing. 4. Enlarged internal jugular lymph nodes bilaterally consistent with reactive lymphadenopathy. 5. Incidental asymmetric increased calcification/ossification along the right stylohyoid ligament that could result in [place] syndrome if symptomatic. Discharge Plan Discharge Clinical Impression: Abscess, peritonsillar Patient Disposition: Home, Self-Care Condition: Stable Additional Instructions: Take medication as prescribed. Follow up with MD or return if worsening symptoms happen. Prescriptions: New hydrocodone-acetaminophen 5-325 mg tablet 1 tab PO Q4-6H PRN (Reason: pain) Qty: 15 0RF amoxicillin-pot clavulanate 875-125 mg tablet 1 tab PO BID Qty: 10 0RF No Action DHA 200 mg capsule 200 mg PO escitalopram oxalate 10 mg tablet 10 mg PO DAILY calcium carbonate [Tums] 200 mg calcium (500 mg) tablet,chewable 200 mg PO BID docusate sodium 100 mg Capsule 100 mg PO BID PRNQty: 100 0RF Rx Instructions: Take 1 cap 1-2 times a day as needed for constipation ibuprofen 600 mg Tablet 600 mg PO Q6H PRNQty: 60 0RF Follow Up/Referrals: Provider,Not a Local [Primary Care Provider] - Stand Alone Forms: [employer] Info Instructions
[2022-08-07] MEDS: HYDROmorphone 0.5 mg/0.5 ml inj IVP (08:56)
[2022-08-07 09:20] LABS: Basophils Absolute Auto 0.02 K/uL (0.00-0.30); Basophils Percent Auto 0.2 % (0.0-3.0); Eosinophils Absolute Auto 0.11 K/uL (0.00-0.50); Eosinophils Percent Auto 1.3 % (0.0-7.0); Hematocrit 34.9 % (33.0-51.0); Hemoglobin* 11.6 gm/dL (12.0-16.0); Immature Granulocytes Abs Auto 0.03 K/uL (0.00-0.30); Immature Granulocytes Pct Auto 0.3 %; Lymphocytes Percent Auto 16.7 % (20-44); Mean Corpuscular HGB Conc 33 gm/dL (32-36); Mean Corpuscular Hemoglobin 25 pg (26-34); Mean Corpuscular Volume 75 fL (80-100); Monocytes Percent Auto 5.7 % (0.0-11.0); Neutrophils Percent Auto 75.8 % (42.0-72.0); Platelet Count* 294 K/uL (140-440); RDW Coefficient of Variation % 13.5 % (11.5-15.5); Red Blood Count 4.64 m/uL (4.00-5.20); White Blood Count* 8.76 K/uL (4.50-11.00)
[2022-08-07 09:21] LABS: Slide Review Reflex No
[2022-08-07 09:33] LABS: Chloride* 103 mmol/L (96-114); Potassium* 3.9 mmol/L (3.6-5.1); Sodium* 138 mmol/L (135-149)
[2022-08-07 09:36] LABS: Blood Urea Nitrogen* 6 mg/dL (5-24); Carbon Dioxide* 27 mmol/L (20-32); Creatinine* 0.6 mg/dL (0.5-1.5); Est. Creatinine Clearance* 124.85; Estimated Glomerular Filt Rate 121 ml/min; Glucose* 82 mg/dL (60-115)
[2022-08-07 09:37] LABS: Calcium* 8.5 mg/dL (8.4-10.6)
[2022-08-07] MEDS: cefTRIAXone 1 GM in 0.9 % SODIUM CHLORIDE Mini-bag 100 ML IVPB (10:03)
== END 2022-08-07 10:39 | disposition home or self-care (01) ==
PROVIDERS: Emergency Provider Emergency Medicine Emergency Medical Services
DX: J36 Peritonsillar abscess (principal)
CPT/HCPCS: 36415; 70491; 80048; 85025; 96374; 96375; 99284; 99285; J0696; J1170; Q9967